=== PATIENT | male | born 1970 | race Caucasian/White ===

== ENCOUNTER 2019-04-28 17:54 | Inpatient (IN) | payer MEDICAID, MEDICARE ==
[~2019-04-28] VITALS: Ht 172.7 cm; Wt 82.1 kg
[~2019-04-28 17:54] MED LIST: BENZ1TAB70 PO; DIVA-78 PO; PANT40TA25 PO; RISP2 PO
[2019-04-28] MEDS ORDERED: QUET100T PO (18:11)
[2019-04-28] MEDS ORDERED: HALOPERIDOL 5 MG TABLET PO ONE (18:30)
[2019-04-28 18:34] LABS: BASOPHILS % (AUTO) 0.7 % (0.0-2.0); EOSINOPHILS % (AUTO) 3.2 % (1.0-6.0); HEMATOCRIT 40.2 % (41-53); HEMOGLOBIN 13.4 g/dL (13.5-17.5); LYMPHOCYTES # (AUTO) 1.9 K/uL (1.0-4.8); LYMPHOCYTES % (AUTO) 27.2 % (22.0-44.0); MEAN CORPUSCULAR HEMOGLOBIN 29.5 pg (26.0-34.0); MEAN CORPUSCULAR HGB CONC 33.4 G/dL (31.0-37.0); MEAN CORPUSCULAR VOLUME 88 fL (80-100); MONOCYTES # (AUTO) 0.5 K/uL (0.1-1.0); MONOCYTES % (AUTO) 7.7 % (2.0-9.0); NEUTROPHILS # (AUTO) 4.2 K/uL (1.8-7.7); NEUTROPHILS % (AUTO) 61.2 % (40.0-70.0); PLATELET COUNT (AUTO) 276 K/uL (150-450); RED BLOOD CELL COUNT(AUTO) 4.55 MIL/uL (4.50-5.90)
[2019-04-28 18:41] LABS: ANION GAP 8 mmol/L (8-16); CALCIUM, TOTAL 8.5 mg/dL (8.8-10.5); CARBON DIOXIDE 27 mmol/L (22-29); CHLORIDE 105 mmol/L (98-107); CREATININE 0.95 mg/dL (0.60-1.30); GLOMERULAR FILTR. RATE CALC > 60 mL/min (>60); GLUCOSE,RANDOM 92 mg/dL (70-110); POTASSIUM 3.7 mmol/L (3.5-5.1); SODIUM SERUM 140 mmol/L (136-145); UREA NITROGEN, BLOOD 17 mg/dL (7-18)
[2019-04-28 18:46] LABS: ALANINE AMINOTRANSFERASE 19 U/L (12-78); ALBUMIN 3.4 g/dL (3.4-5.0); ALKALINE PHOSPHATASE 85 U/L (46-116); ASPARTATE AMINOTRANSFERASE 19 U/L (15-37); BILIRUBIN,TOTAL 0.3 mg/dL (0.1-1.0); TOTAL PROTEIN, SERUM 6.8 g/dL (6.4-8.2)
[2019-04-28 19:08] LABS: AMPHET/METH SCREEN,URINE POSITIVE (NEGATIVE); BARBITURATE SCREEN, URINE NEGATIVE (NEGATIVE); BENZODIAZEPINES SCREEN,URINE NEGATIVE (NEGATIVE); CANNABINOID SCREEN,URINE POSITIVE (NEGATIVE); COCAINE SCREEN,URINE NEGATIVE (NEGATIVE); METHADONE SCREEN, URINE NEGATIVE (NEGATIVE); OPIATE SCREEN,URINE NEGATIVE (NEGATIVE)
[2019-04-28 19:13] LABS: PHENCYCLIDINE SCREEN,URINE NEGATIVE (NEGATIVE)
[2019-04-28] MEDS ORDERED: LORazepam 2 MG TABLET PO PRN (21:30)
[2019-04-28] MEDS ORDERED: ZOLPIDEM TARTRATE 10 MG TABLET PO PRN (21:30)
[2019-04-28] MEDS ORDERED: HALOPERIDOL 5 MG TABLET PO PRN (21:30)
[2019-04-28 21:44] LABS: APPEARANCE,URINE CLEAR (CLEAR); BILIRUBIN,URINE NEGATIVE (NEGATIVE); GLUCOSE, URINE (UA) NEGATIVE (NEGATIVE); KETONES,URINE NEGATIVE (NEGATIVE); LEUKOCYTE ESTERASE ,URINE NEGATIVE (NEGATIVE); NITRATE,URINE NEGATIVE (NEGATIVE); OCCULT BLOOD,URINE NEGATIVE (NEGATIVE); PROTEIN,URINE NEGATIVE (NEGATIVE); UROBILINOGEN,URINE 0.2 mg/dL (<=1.0)
[2019-04-29 00:33] VITALS: BP 118/67
[2019-04-29] MEDS ORDERED: INFLUENZA VIRUS VACCINE QVS 2019-20 (3YR+)/PF 60 MCG/0.5 ML SYRINGE IM ONE (03:00)
[2019-04-29 08:18] LABS: HEMOGLOBIN A1C 5.7 % (4.5-6.2)
[2019-04-29 08:30] LABS: CHOL/HDL RATIO 2.5 (4.2-7.3); FREE T4 (FREE THYROXINE) 0.83 ng/dL (0.76-1.46); THYROID STIMULATING HORMONE 1.52 uIU/mL (0.36-3.74)
[2019-04-29 08:41] VITALS: BP 103/65
[2019-04-29] MEDS ORDERED: PETROLATUM,WHITE 28 GM JELLY TP PRN (10:15)
[2019-04-29] MEDS ORDERED: ACETAMINOPHEN 325 MG TABLET PO PRN (10:15)
[2019-04-29] MEDS ORDERED: ALBUTEROL SULFATE HFA 90 MCG/PUFF 8 GM INHALER IH PRN (10:15)
[2019-04-29] MEDS ORDERED: NICOTINE 14 MG/24 HOUR PATCH TD PRN (10:15)
[2019-04-29] MEDS ORDERED: MAGNESIUM HYDROXIDE SUSPENSION 30 ML UDCUP PO PRN (10:15)
[2019-04-29] MEDS ORDERED: DOCUSATE SODIUM 100 MG CAPSULE PO PRN (10:15)
[2019-04-29] MEDS ORDERED: LOPERAMIDE HCL 2 MG CAPSULE PO PRN (10:15)
[2019-04-29] MEDS ORDERED: MAG HYDROX/AL HYDROX/SIMETH ES 30 ML SUSPENSION UDCUP PO PRN (10:15)
[2019-04-29] MEDS ORDERED: CloNIDine HCL 0.1 MG TABLET PO PRN (10:15)
[2019-04-29] MEDS ORDERED: IBUPROFEN 400 MG TABLET PO PRN (10:15)
[2019-04-29] MEDS ORDERED: ONDANSETRON HCL 4 MG TABLET PO PRN (10:15)
[2019-04-29] MEDS ORDERED: GuaiFENesin/D-METHORPHAN [SUGAR-FREE] 200-20MG/10 ML SYRUP UDCUP PO PRN (10:15)
[2019-04-29 16:11] VITALS: BP 101/79
[2019-04-29] MEDS: QUEtiapine FUMARATE 200 MG TABLET PO SCH (20:43)
[2019-04-30 07:36] VITALS: BP 110/68
[2019-04-30 08:25] VITALS: BP 112/72
[2019-04-30 16:13] VITALS: BP 112/84
[2019-04-30] MEDS: QUEtiapine FUMARATE 200 MG TABLET PO SCH (20:29)
[2019-05-01 06:53] VITALS: BP 123/78
[2019-05-01 08:23] VITALS: BP 117/83
[2019-05-01 16:11] VITALS: BP 120/74
[2019-05-01] MEDS: QUEtiapine FUMARATE 200 MG TABLET PO SCH (20:12)
[2019-05-02 06:07] VITALS: BP 118/69
[2019-05-02 09:11] VITALS: BP 115/81
[2019-05-02] MEDS: ESCITALOPRAM OXALATE 10 MG TABLET PO SCH (09:28)
[2019-05-02 16:12] VITALS: BP 118/70
[2019-05-02] MEDS: QUEtiapine FUMARATE 300 MG TABLET PO SCH (20:07)
[2019-05-03] MEDS: FERROUS SULFATE 325 MG EC TABLET PO SCH ×2 (06:50→16:40)
[2019-05-03 07:23] VITALS: BP 120/81
[2019-05-03 08:31] VITALS: BP 111/66
[2019-05-03] MEDS: ESCITALOPRAM OXALATE 10 MG TABLET PO SCH (08:32)
[2019-05-03 16:13] VITALS: BP 114/69
[2019-05-03] MEDS: QUEtiapine FUMARATE 300 MG TABLET PO SCH (21:17)
[2019-05-04 01:17] VITALS: BP 112/68
[2019-05-04] MEDS: FERROUS SULFATE 325 MG EC TABLET PO SCH ×2 (06:55→16:40)
[2019-05-04 08:00] VITALS: BP 120/74
[2019-05-04] MEDS: ESCITALOPRAM OXALATE 10 MG TABLET PO SCH (08:37)
[2019-05-04 16:12] VITALS: BP 121/79
[2019-05-04] MEDS: QUEtiapine FUMARATE 300 MG TABLET PO SCH (20:39)
[2019-05-05 00:31] VITALS: BP 109/62
[2019-05-05] MEDS: FERROUS SULFATE 325 MG EC TABLET PO SCH (06:30)
[2019-05-05 08:30] VITALS: BP 120/86
[2019-05-05] MEDS: ESCITALOPRAM OXALATE 10 MG TABLET PO SCH (08:35)
[2019-05-05] MEDS ORDERED: QUET300T2 PO (08:51)
[2019-05-05] MEDS ORDERED: ESCI10TA PO (08:51)
[2019-05-05] MEDS ORDERED: FERR-89 PO (08:51)
== END 2019-05-05 10:40 | disposition home or self-care (01) | DRG 885 ==
LOC: EMS 17:55 → B2X 22:00
DX: F25.1 Schizoaffective disorder, depressive type (principal); R45.851 Suicidal ideations; F17.210 Nicotine dependence, cigarettes, uncomplicated; D64.9 Anemia, unspecified; E83.51 Hypocalcemia; F32.9 Major depressive disorder, single episode, unspecified; F41.9 Anxiety disorder, unspecified; F19.10 Other psychoactive substance abuse, uncomplicated; F15.10 Other stimulant abuse, uncomplicated; F12.10 Cannabis abuse, uncomplicated; Z91.5 Personal history of self-harm; Z23 Encounter for immunization; Z71.51 Drug abuse counseling and surveillance of drug abuser; Z79.899 Other long term (current) drug therapy
CPT/HCPCS: 83036; 84439; 84443; 90471; 90686; G0480

== ENCOUNTER 2021-05-23 00:40 | Emergency (ER) | payer MEDICARE ==
[~2021-05-23] VITALS: Ht 172.7 cm; Wt 81.8 kg
[~2021-05-23 00:40] MED LIST changes: -BENZ1TAB70 PO; -DIVA-78 PO; +ESCI-8 PO; +FERR-89 PO; -PANT40TA25 PO; +QUET300T2 PO; -RISP2 PO
[2021-05-23] MEDS ORDERED: QUET200T PO (01:08)
[2021-05-23 01:16] LABS: COVID AG,FIA SOURCE NASOPHARYNGEAL
[2021-05-23 01:20] LABS: BASOPHILS % (AUTO) 0.8 % (0.0-2.0); EOSINOPHILS % (AUTO) 4.7 % (1.0-6.0); HEMATOCRIT 38.9 % (41-53); HEMOGLOBIN 12.7 g/dL (13.5-17.5); LYMPHOCYTES % (AUTO) 32.8 % (22.0-44.0); MEAN CORPUSCULAR HEMOGLOBIN 29.6 pg (26.0-34.0); MEAN CORPUSCULAR HGB CONC 32.5 G/dL (31.0-37.0); MEAN CORPUSCULAR VOLUME 91 fL (80-100); MONOCYTES # (AUTO) 0.5 K/uL (0.1-1.0); MONOCYTES % (AUTO) 8.8 % (2.0-9.0); NEUTROPHILS # (AUTO) 3.2 K/uL (1.8-7.7); NEUTROPHILS % (AUTO) 52.9 % (40.0-70.0); PLATELET COUNT (AUTO) 258 K/uL (150-450); RED BLOOD CELL COUNT(AUTO) 4.28 MIL/uL (4.50-5.90); RED CELL DISTRIBUTION WIDTH 14.2 % (11.5-14.5)
[2021-05-23 01:30] LABS: ANION GAP 8 mmol/L (8-16); CALCIUM, TOTAL 8.6 mg/dL (8.8-10.5); CARBON DIOXIDE 27 mmol/L (22-29); CHLORIDE 106 mmol/L (98-107); GLOMERULAR FILTR. RATE CALC > 60 mL/min (>60); GLUCOSE,RANDOM 111 mg/dL (70-110); POTASSIUM 4.5 mmol/L (3.5-5.1); SODIUM SERUM 141 mmol/L (136-145); UREA NITROGEN, BLOOD 21 mg/dL (7-18)
[2021-05-23 01:36] LABS: ALANINE AMINOTRANSFERASE 26 U/L (12-78); ALBUMIN 3.1 g/dL (3.4-5.0); ALKALINE PHOSPHATASE 99 U/L (46-116); ASPARTATE AMINOTRANSFERASE 21 U/L (15-37); BILIRUBIN,TOTAL 0.2 mg/dL (0.1-1.0); TOTAL PROTEIN, SERUM 6.5 g/dL (6.4-8.2)
[2021-05-23 02:27] LABS: AMPHET/METH SCREEN,URINE POSITIVE (NEGATIVE); BARBITURATE SCREEN, URINE NEGATIVE (NEGATIVE); BENZODIAZEPINES SCREEN,URINE NEGATIVE (NEGATIVE); CANNABINOID SCREEN,URINE POSITIVE (NEGATIVE); COCAINE SCREEN,URINE NEGATIVE (NEGATIVE); METHADONE SCREEN, URINE NEGATIVE (NEGATIVE); OPIATE SCREEN,URINE NEGATIVE (NEGATIVE)
[2021-05-23 02:28] LABS: PHENCYCLIDINE SCREEN,URINE NEGATIVE (NEGATIVE)
[2021-05-23 03:25] VITALS: BP 105/69
== END 2021-05-23 03:49 | disposition short-term general hospital (02) ==
LOC: EMS 00:40
DX: F20.9 Schizophrenia, unspecified (principal); F15.10 Other stimulant abuse, uncomplicated; F17.210 Nicotine dependence, cigarettes, uncomplicated; F12.90 Cannabis use, unspecified, uncomplicated; Z20.822 Contact with and (suspected) exposure to COVID-19
CPT/HCPCS: 36415; 80053; 80307; 82962; 85025; 87426; 99285; G0480

== ENCOUNTER 2021-05-23 14:48 | Inpatient (IN) | payer MEDICARE ==
[~2021-05-23] VITALS: Ht 175.3 cm; Wt 74.8 kg
[~2021-05-23 14:48] MED LIST changes: +QUET200T PO
[2021-05-23 19:05] VITALS: BP 137/80
[2021-05-23] MEDS ORDERED: INFLUENZA VIRUS VACCINE QVS 2021-22 (6MO+)/PF 60 MCG/0.5 ML SYRINGE IM. ONE (20:30)
[2021-05-24 00:34] VITALS: BP 129/68
[2021-05-24] MEDS ORDERED: ALBUTEROL SULFATE HFA 90 MCG/PUFF 8 GM INHALER IH PRN (06:45)
[2021-05-24] MEDS ORDERED: ACETAMINOPHEN 325 MG TABLET PO PRN (06:45)
[2021-05-24] MEDS ORDERED: NICOTINE 14 MG/24 HOUR PATCH TD PRN (06:45)
[2021-05-24] MEDS ORDERED: LOPERAMIDE HCL 2 MG CAPSULE PO PRN (06:45)
[2021-05-24] MEDS ORDERED: PETROLATUM,WHITE 28 GM JELLY TP PRN (06:45)
[2021-05-24] MEDS ORDERED: GuaiFENesin/D-METHORPHAN [SUGAR-FREE] 200-20MG/10 ML SYRUP UDCUP PO PRN (06:45)
[2021-05-24] MEDS ORDERED: IBUPROFEN 400 MG TABLET PO PRN (06:45)
[2021-05-24] MEDS ORDERED: CloNIDine HCL 0.1 MG TABLET PO PRN (06:45)
[2021-05-24] MEDS ORDERED: ONDANSETRON HCL 4 MG TABLET PO PRN (06:45)
[2021-05-24] MEDS ORDERED: DOCUSATE SODIUM 100 MG CAPSULE PO PRN (06:45)
[2021-05-24 08:23] VITALS: BP 106/65
[2021-05-24] MEDS: ESCITALOPRAM OXALATE 10 MG TABLET PO SCH (10:37)
[2021-05-24] MEDS: QUEtiapine FUMARATE 100 MG TABLET PO SCH (10:37)
[2021-05-24] MEDS: LORazepam 2 MG TABLET PO PRN (12:04)
[2021-05-24 16:24] VITALS: BP 129/86
[2021-05-24] MEDS: QUEtiapine FUMARATE 200 MG TABLET PO SCH (20:58)
[2021-05-24] MEDS: ZOLPIDEM TARTRATE 10 MG TABLET PO PRN (21:05)
[2021-05-25 00:37] VITALS: BP 124/76
[2021-05-25 07:50] LABS: BASOPHILS % (AUTO) 1.2 % (0.0-2.0); EOSINOPHILS % (AUTO) 4.6 % (1.0-6.0); HEMATOCRIT 44.1 % (41-53); HEMOGLOBIN 14.4 g/dL (13.5-17.5); LYMPHOCYTES # (AUTO) 1.1 K/uL (1.0-4.8); LYMPHOCYTES % (AUTO) 27.6 % (22.0-44.0); MEAN CORPUSCULAR HEMOGLOBIN 29.6 pg (26.0-34.0); MEAN CORPUSCULAR HGB CONC 32.7 G/dL (31.0-37.0); MEAN CORPUSCULAR VOLUME 90 fL (80-100); MONOCYTES # (AUTO) 0.4 K/uL (0.1-1.0); MONOCYTES % (AUTO) 9.6 % (2.0-9.0); NEUTROPHILS # (AUTO) 2.3 K/uL (1.8-7.7); PLATELET COUNT (AUTO) 300 K/uL (150-450); RED BLOOD CELL COUNT(AUTO) 4.88 MIL/uL (4.50-5.90); RED CELL DISTRIBUTION WIDTH 14.4 % (11.5-14.5)
[2021-05-25 08:25] VITALS: BP 129/85
[2021-05-25 08:32] LABS: ALANINE AMINOTRANSFERASE 16 U/L (12-78); ALBUMIN 3.3 g/dL (3.4-5.0); ALKALINE PHOSPHATASE 104 U/L (46-116); ANION GAP 5 mmol/L (8-16); ASPARTATE AMINOTRANSFERASE 11 U/L (15-37); BILIRUBIN,TOTAL 0.2 mg/dL (0.1-1.0); CALCIUM, TOTAL 8.7 mg/dL (8.8-10.5); CARBON DIOXIDE 29 mmol/L (22-29); CHLORIDE 105 mmol/L (98-107); CHOL/HDL RATIO 2.3 (4.2-7.3); CHOLESTEROL 155 mg/dL (131-200); CREATININE 0.84 mg/dL (0.60-1.30); FREE T4 (FREE THYROXINE) 0.69 ng/dL (0.76-1.46); GLOMERULAR FILTR. RATE CALC > 60 mL/min (>60); GLUCOSE,RANDOM 92 mg/dL (70-110); HDL CHOLESTEROL 68 mg/dL (40-60); LDL CHOL (CALC.) 80 mg/dL (0-130); POTASSIUM 4.6 mmol/L (3.5-5.1); SODIUM SERUM 139 mmol/L (136-145); TOTAL PROTEIN, SERUM 7.3 g/dL (6.4-8.2); TRIGLYCERIDES 36 mg/dL (15-150); UREA NITROGEN, BLOOD 16 mg/dL (7-18)
[2021-05-25] MEDS: QUEtiapine FUMARATE 100 MG TABLET PO SCH (08:56)
[2021-05-25] MEDS: ESCITALOPRAM OXALATE 10 MG TABLET PO SCH (08:56)
[2021-05-25] MEDS: LORazepam 2 MG TABLET PO PRN (09:03)
[2021-05-25 17:15] VITALS: BP 117/88
[2021-05-25] MEDS: QUEtiapine FUMARATE 200 MG TABLET PO SCH (20:50)
[2021-05-26 08:36] VITALS: BP 108/74
[2021-05-26] MEDS: QUEtiapine FUMARATE 100 MG TABLET PO SCH (09:01)
[2021-05-26] MEDS: ESCITALOPRAM OXALATE 10 MG TABLET PO SCH (09:03)
[2021-05-26 16:21] VITALS: BP 110/62
[2021-05-26] MEDS: QUEtiapine FUMARATE 200 MG TABLET PO SCH (20:15)
[2021-05-27 03:29] VITALS: BP 106/70
[2021-05-27 08:26] VITALS: BP 111/69
[2021-05-27] MEDS: QUEtiapine FUMARATE 100 MG TABLET PO SCH (08:42)
[2021-05-27] MEDS: ESCITALOPRAM OXALATE 10 MG TABLET PO SCH (08:42)
[2021-05-27] MEDS: LORazepam 2 MG TABLET PO PRN (08:47)
[2021-05-27 16:47] VITALS: BP 117/81
[2021-05-27] MEDS: QUEtiapine FUMARATE 200 MG TABLET PO SCH (20:44)
[2021-05-28 04:09] VITALS: BP 111/70
[2021-05-28 08:26] VITALS: BP 133/91
[2021-05-28] MEDS: ESCITALOPRAM OXALATE 10 MG TABLET PO SCH (08:35)
[2021-05-28] MEDS: QUEtiapine FUMARATE 100 MG TABLET PO SCH (08:35)
[2021-05-28 16:53] VITALS: BP 131/76
[2021-05-28] MEDS: HALOPERIDOL 5 MG TABLET PO PRN (17:09)
[2021-05-28] MEDS: LORazepam 2 MG TABLET PO PRN (17:09)
[2021-05-28] MEDS: QUEtiapine FUMARATE 200 MG TABLET PO SCH (20:51)
[2021-05-29 00:30] VITALS: BP 128/72
[2021-05-29] MEDS: QUEtiapine FUMARATE 100 MG TABLET PO SCH (08:22)
[2021-05-29] MEDS: ESCITALOPRAM OXALATE 10 MG TABLET PO SCH (08:23)
[2021-05-29 08:43] VITALS: BP 128/74
[2021-05-29 16:18] VITALS: BP 104/62
[2021-05-29] MEDS: QUEtiapine FUMARATE 200 MG TABLET PO SCH (20:36)
[2021-05-29] MEDS: ZOLPIDEM TARTRATE 10 MG TABLET PO PRN (20:36)
[2021-05-29] MEDS: HALOPERIDOL 5 MG TABLET PO PRN (20:36)
[2021-05-30 01:02] VITALS: BP 106/74
[2021-05-30 08:40] VITALS: BP 116/68
[2021-05-30] MEDS: QUEtiapine FUMARATE 100 MG TABLET PO SCH (10:06)
[2021-05-30] MEDS: ESCITALOPRAM OXALATE 10 MG TABLET PO SCH (10:06)
[2021-05-30 16:16] VITALS: BP 112/71
[2021-05-30] MEDS: ZOLPIDEM TARTRATE 10 MG TABLET PO PRN (20:19)
[2021-05-30] MEDS: QUEtiapine FUMARATE 200 MG TABLET PO SCH (20:19)
[2021-05-31 06:06] VITALS: BP 116/72
[2021-05-31] MEDS: QUEtiapine FUMARATE 100 MG TABLET PO SCH (08:48)
[2021-05-31] MEDS: ESCITALOPRAM OXALATE 10 MG TABLET PO SCH (08:49)
[2021-05-31 09:39] VITALS: BP 113/77
[2021-05-31] MEDS: LORazepam 2 MG TABLET PO PRN (13:04)
[2021-05-31] MEDS: HALOPERIDOL 5 MG TABLET PO PRN ×2 (13:04→20:23)
[2021-05-31 16:38] VITALS: BP 137/85
[2021-05-31] MEDS: QUEtiapine FUMARATE 200 MG TABLET PO SCH (20:23)
[2021-05-31] MEDS: MAG HYDROX/AL HYDROX/SIMETH ES 30 ML SUSPENSION UDCUP PO PRN (22:42)
[2021-06-01 04:56] VITALS: BP 116/62
[2021-06-01 08:33] VITALS: BP 111/73
[2021-06-01] MEDS: QUEtiapine FUMARATE 100 MG TABLET PO SCH (08:52)
[2021-06-01] MEDS: ESCITALOPRAM OXALATE 10 MG TABLET PO SCH (08:52)
[2021-06-01 16:24] VITALS: BP 122/83
[2021-06-01] MEDS: HALOPERIDOL 5 MG TABLET PO PRN (17:33)
[2021-06-01] MEDS: LORazepam 2 MG TABLET PO PRN (17:33)
[2021-06-01] MEDS: MAG HYDROX/AL HYDROX/SIMETH ES 30 ML SUSPENSION UDCUP PO PRN (20:14)
[2021-06-01] MEDS: QUEtiapine FUMARATE 200 MG TABLET PO SCH (20:15)
[2021-06-01] MEDS: ZOLPIDEM TARTRATE 10 MG TABLET PO PRN (20:15)
[2021-06-02 05:42] VITALS: BP 116/68
[2021-06-02] MEDS: QUEtiapine FUMARATE 100 MG TABLET PO SCH (08:39)
[2021-06-02] MEDS: ESCITALOPRAM OXALATE 10 MG TABLET PO SCH (08:40)
[2021-06-02 08:49] VITALS: BP 115/73
[2021-06-02 16:05] VITALS: BP 120/65
[2021-06-02] MEDS: QUEtiapine FUMARATE 200 MG TABLET PO SCH (20:29)
[2021-06-02] MEDS: MAG HYDROX/AL HYDROX/SIMETH ES 30 ML SUSPENSION UDCUP PO PRN (21:34)
[2021-06-02] MEDS: HALOPERIDOL 5 MG TABLET PO PRN (22:10)
[2021-06-02] MEDS: LORazepam 2 MG TABLET PO PRN (22:10)
[2021-06-03 06:30] VITALS: BP 91/62
[2021-06-03 08:20] VITALS: BP 100/64
[2021-06-03] MEDS: QUEtiapine FUMARATE 100 MG TABLET PO SCH (08:24)
[2021-06-03] MEDS: ESCITALOPRAM OXALATE 10 MG TABLET PO SCH (08:24)
[2021-06-03 16:26] VITALS: BP 101/68
[2021-06-03] MEDS: ZOLPIDEM TARTRATE 10 MG TABLET PO PRN (20:25)
[2021-06-03] MEDS: QUEtiapine FUMARATE 200 MG TABLET PO SCH (20:29)
[2021-06-03] MEDS: MAG HYDROX/AL HYDROX/SIMETH ES 30 ML SUSPENSION UDCUP PO PRN (21:45)
[2021-06-04 08:19] VITALS: BP 102/69
[2021-06-04] MEDS: QUEtiapine FUMARATE 100 MG TABLET PO SCH (08:48)
[2021-06-04] MEDS: ESCITALOPRAM OXALATE 10 MG TABLET PO SCH (08:48)
[2021-06-04 16:16] VITALS: BP 114/75
[2021-06-04] MEDS: ZOLPIDEM TARTRATE 10 MG TABLET PO PRN (20:12)
[2021-06-04] MEDS: QUEtiapine FUMARATE 200 MG TABLET PO SCH (20:12)
[2021-06-05 05:35] VITALS: BP 118/62
[2021-06-05] MEDS: ESCITALOPRAM OXALATE 10 MG TABLET PO SCH (08:18)
[2021-06-05] MEDS: QUEtiapine FUMARATE 100 MG TABLET PO SCH (08:18)
[2021-06-05 08:22] VITALS: BP 108/69
[2021-06-05] MEDS: MAGNESIUM HYDROXIDE SUSPENSION 30 ML UDCUP PO PRN (12:41)
[2021-06-05 16:09] VITALS: BP 117/82
[2021-06-05] MEDS: ZOLPIDEM TARTRATE 10 MG TABLET PO PRN (20:29)
[2021-06-05] MEDS: QUEtiapine FUMARATE 200 MG TABLET PO SCH (20:29)
[2021-06-06 01:07] VITALS: BP 110/67
[2021-06-06] MEDS: ESCITALOPRAM OXALATE 10 MG TABLET PO SCH (08:10)
[2021-06-06] MEDS: LORazepam 2 MG TABLET PO PRN (08:11)
[2021-06-06] MEDS: HALOPERIDOL 5 MG TABLET PO PRN (08:11)
[2021-06-06] MEDS: QUEtiapine FUMARATE 100 MG TABLET PO SCH (08:11)
[2021-06-06 08:15] VITALS: BP 123/83
[2021-06-06 16:19] VITALS: BP 120/80
[2021-06-06] MEDS: QUEtiapine FUMARATE 200 MG TABLET PO SCH (20:41)
[2021-06-07 05:52] VITALS: BP 110/76
[2021-06-07 08:17] VITALS: BP 110/62
[2021-06-07] MEDS: ESCITALOPRAM OXALATE 10 MG TABLET PO SCH (08:47)
[2021-06-07] MEDS: QUEtiapine FUMARATE 100 MG TABLET PO SCH (08:48)
[2021-06-07] MEDS: HALOPERIDOL 5 MG TABLET PO PRN (15:58)
[2021-06-07 16:06] VITALS: BP 111/80
[2021-06-07] MEDS: MAGNESIUM HYDROXIDE SUSPENSION 30 ML UDCUP PO PRN (18:34)
[2021-06-07] MEDS: QUEtiapine FUMARATE 200 MG TABLET PO SCH (20:24)
[2021-06-07] MEDS: ZOLPIDEM TARTRATE 10 MG TABLET PO PRN (20:24)
[2021-06-08 00:58] VITALS: BP 118/78
[2021-06-08 07:19] LABS: COVID AG,FIA SOURCE NASOPHARYNGEAL
[2021-06-08 08:20] VITALS: BP 114/69
[2021-06-08] MEDS: ESCITALOPRAM OXALATE 10 MG TABLET PO SCH (09:31)
[2021-06-08] MEDS: QUEtiapine FUMARATE 100 MG TABLET PO SCH (09:31)
[2021-06-08 16:07] VITALS: BP 110/72
[2021-06-08] MEDS: LORazepam 2 MG TABLET PO PRN (18:41)
[2021-06-08] MEDS: HALOPERIDOL 5 MG TABLET PO PRN (18:41)
[2021-06-08] MEDS: QUEtiapine FUMARATE 200 MG TABLET PO SCH (20:05)
[2021-06-08] MEDS: ZOLPIDEM TARTRATE 10 MG TABLET PO PRN (20:05)
[2021-06-09 00:56] VITALS: BP 115/67
[2021-06-09 08:02] VITALS: BP 112/75
[2021-06-09] MEDS: ESCITALOPRAM OXALATE 10 MG TABLET PO SCH (08:11)
[2021-06-09] MEDS: QUEtiapine FUMARATE 100 MG TABLET PO SCH (08:12)
[2021-06-09] MEDS: HALOPERIDOL 5 MG TABLET PO PRN (16:09)
[2021-06-09 16:14] VITALS: BP 113/80
[2021-06-09] MEDS: LORazepam 2 MG TABLET PO PRN (18:09)
[2021-06-09] MEDS: QUEtiapine FUMARATE 300 MG TABLET PO SCH (20:26)
[2021-06-09] MEDS: ZOLPIDEM TARTRATE 10 MG TABLET PO PRN (20:26)
[2021-06-10 00:47] VITALS: BP 103/66
[2021-06-10 08:05] VITALS: BP 125/87
[2021-06-10] MEDS: QUEtiapine FUMARATE 100 MG TABLET PO SCH (08:17)
[2021-06-10] MEDS: ESCITALOPRAM OXALATE 10 MG TABLET PO SCH (08:17)
[2021-06-10 16:11] VITALS: BP 101/70
[2021-06-10] MEDS: HALOPERIDOL 5 MG TABLET PO PRN (16:17)
[2021-06-10] MEDS: QUEtiapine FUMARATE 300 MG TABLET PO SCH (20:20)
[2021-06-10] MEDS: ZOLPIDEM TARTRATE 10 MG TABLET PO PRN (20:20)
[2021-06-11 00:22] VITALS: BP 111/72
[2021-06-11 07:19] LABS: BASOPHILS % (AUTO) 0.4 % (0.0-2.0); EOSINOPHILS % (AUTO) 2.8 % (1.0-6.0); HEMATOCRIT 37.2 % (41-53); HEMOGLOBIN 12.4 g/dL (13.5-17.5); LYMPHOCYTES # (AUTO) 1.9 K/uL (1.0-4.8); LYMPHOCYTES % (AUTO) 25.3 % (22.0-44.0); MEAN CORPUSCULAR HEMOGLOBIN 29.3 pg (26.0-34.0); MEAN CORPUSCULAR HGB CONC 33.3 G/dL (31.0-37.0); MEAN CORPUSCULAR VOLUME 88 fL (80-100); MONOCYTES # (AUTO) 0.8 K/uL (0.1-1.0); MONOCYTES % (AUTO) 10.1 % (2.0-9.0); NEUTROPHILS # (AUTO) 4.7 K/uL (1.8-7.7); NEUTROPHILS % (AUTO) 61.4 % (40.0-70.0); PLATELET COUNT (AUTO) 276 K/uL (150-450); RED BLOOD CELL COUNT(AUTO) 4.22 MIL/uL (4.50-5.90); RED CELL DISTRIBUTION WIDTH 14.4 % (11.5-14.5)
[2021-06-11 08:23] VITALS: BP 112/77
[2021-06-11] MEDS: QUEtiapine FUMARATE 100 MG TABLET PO SCH (08:24)
[2021-06-11] MEDS: ESCITALOPRAM OXALATE 10 MG TABLET PO SCH (08:24)
[2021-06-11 16:13] VITALS: BP 126/71
[2021-06-11] MEDS: HALOPERIDOL 5 MG TABLET PO PRN (17:35)
[2021-06-11] MEDS: LORazepam 2 MG TABLET PO PRN (17:35)
[2021-06-11] MEDS: QUEtiapine FUMARATE 300 MG TABLET PO SCH (20:25)
[2021-06-11] MEDS: ZOLPIDEM TARTRATE 10 MG TABLET PO PRN (20:25)
[2021-06-12 00:45] VITALS: BP 120/78
[2021-06-12 09:36] VITALS: BP 103/75
[2021-06-12] MEDS: QUEtiapine FUMARATE 100 MG TABLET PO SCH (09:46)
[2021-06-12] MEDS: ESCITALOPRAM OXALATE 10 MG TABLET PO SCH (09:46)
[2021-06-12] MEDS: HALOPERIDOL 5 MG TABLET PO PRN (09:52)
[2021-06-12] MEDS: LORazepam 2 MG TABLET PO PRN (09:52)
[2021-06-12 16:11] VITALS: BP 113/70
[2021-06-12] MEDS: QUEtiapine FUMARATE 300 MG TABLET PO SCH (20:42)
[2021-06-13 05:32] VITALS: BP 112/85
[2021-06-13 08:05] VITALS: BP 115/90
[2021-06-13] MEDS: HALOPERIDOL 5 MG TABLET PO PRN ×2 (09:06→17:22)
[2021-06-13] MEDS: ESCITALOPRAM OXALATE 10 MG TABLET PO SCH (09:06)
[2021-06-13] MEDS: QUEtiapine FUMARATE 100 MG TABLET PO SCH (09:09)
[2021-06-13 16:04] VITALS: BP 116/65
[2021-06-13] MEDS: QUEtiapine FUMARATE 300 MG TABLET PO SCH (20:27)
[2021-06-13 23:44] LABS: GLUCOMETER DEV NAME(LOC) POC.BV
[2021-06-14] MEDS: ZOLPIDEM TARTRATE 10 MG TABLET PO PRN (00:43)
[2021-06-14 01:47] VITALS: BP 111/77
[2021-06-14 08:20] VITALS: BP 103/79
[2021-06-14] MEDS ORDERED: QUET300T2 PO (08:45)
[2021-06-14] MEDS ORDERED: QUET100T PO (08:45)
[2021-06-14] MEDS ORDERED: ESCI-8 PO (08:46)
[2021-06-14] MEDS: QUEtiapine FUMARATE 100 MG TABLET PO SCH (09:30)
[2021-06-14] MEDS: ESCITALOPRAM OXALATE 10 MG TABLET PO SCH (09:30)
== END 2021-06-14 10:00 | disposition home or self-care (01) | DRG 885 ==
LOC: B3A 18:55 → B2S 06-04 15:35
PROVIDERS: ADMIT Psychiatry & Neurology Child & Adolescent Psychiatry; ATTEND Psychiatry & Neurology Child & Adolescent Psychiatry
DX: F20.0 Paranoid schizophrenia (principal); D72.819 Decreased white blood cell count, unspecified; F10.10 Alcohol abuse, uncomplicated; K21.9 Gastro-esophageal reflux disease without esophagitis; Z20.822 Contact with and (suspected) exposure to COVID-19; F19.10 Other psychoactive substance abuse, uncomplicated; K30 Functional dyspepsia; Z59.00 Homelessness unspecified; Z28.21 Immunization not carried out because of patient refusal; Z79.899 Other long term (current) drug therapy
CPT/HCPCS: 80053; 80061; 82962; 84439; 84443; 85025; 99285; G0480; Q0162